=== PATIENT | male | born 1985 | race Caucasian/White ===

== ENCOUNTER 2022-03-24 14:06 | Emergency (ER) | payer OTHER ==
[~2022-03-24] VITALS: Ht 172.7 cm; Wt 104.5 kg
[2022-03-24 14:18] VITALS: TEMP 98.3
[2022-03-24] MEDS ORDERED: ZITHROMAX Z PA250 MG PO (17:40)
[2022-03-24] MEDS ORDERED: PREDNISONE20 MG PO (17:40)
[2022-03-24 17:43] VITALS: BP 129/84; PULSE 96
== END 2022-03-24 17:43 | disposition home or self-care (01) ==
LOC: COL.ER 14:06
DX: J40 Bronchitis, not specified as acute or chronic (principal); F17.200 Nicotine dependence, unspecified, uncomplicated; Z88.0 Allergy status to penicillin; Z20.822 Contact with and (suspected) exposure to COVID-19; Z28.310 Unvaccinated for COVID-19